=== PATIENT | female | born 1975 | race Two or more races ===

== ENCOUNTER 2024-10-09 11:45 | Emergency (ER) | payer MEDICAID, SELFPAY ==
[2024-10-09 12:02] VITALS: BP 142/82; PULSE 77; RESP 18; TEMP 36.7; O2SAT 96; BMI 30.3
--- NOTE | 2024-10-09 12:05 | PD.EDHA ---
ED Headache RME/HPI General Chief Complaint: Headache Stated Complaint: HEADACHE, DIZZY; 0800 IBUPROFEN Time Seen by Provider: 10/09/24 11:56 Source: patient Arrival date/time: 10/09/24 11:45 49-year-old female with no known medical history presents to the emergency room with a chief complaint of of a headache and dizziness x 6 days. Patient states the dizziness is very positional and occurs with sudden positional movements. Mode of arrival: ambulatory Limitations: no limitations Related Data Previous Rx's ?Medication ?Instructions ?Recorded hydrocodone 5 mg-acetaminophen 325 1 tab PO Q4H PRN pain #10 tabs 04/08/19 mg tablet ([place]) ibuprofen 600 mg tablet 600 mg PO Q6H PRN pain #14 tabs 04/08/19 meclizine 25 mg tablet 25 mg PO BID PRN dizziness #20 tabs 10/09/24 Allergies Allergy/AdvReac Type Severity Reaction Status Date / Time No Known Allergies AdvReac Unknown Uncoded 10/09/24 11:46 Review of Systems Review of Systems Systems Reviewed: All systems reviewed, normal except as documented Constitutional Constitutional: Denies fatigue and Reports headache(s) Eyes Eyes: Reports system reviewed and no additional complaints, except as documented, Denies blurry vision and Denies change in vision ENT Ears, Nose, Mouth, and Throat: Reports headache(s) and Denies throat swelling Cardiovascular Cardiovascular: Reports system reviewed and no additional complaints, except as documented, Denies chest pain, Denies dyspnea and Denies dyspnea on exertion Respiratory Respiratory: Reports system reviewed and no additional complaints, except as documented, Denies chest congestion, Denies cough, Denies dyspnea, Denies dyspnea on exertion and Denies wheezing Gastrointestinal Gastrointestinal: Reports system reviewed and no additional complaints, except as documented, Denies abdominal pain, Denies cramping, Denies nausea and Denies vomiting Genitourinary Genitourinary: Reports system reviewed and no additional complaints, except as documented Musculoskeletal Musculoskeletal: Reports system reviewed and no additional complaints, except as documented and Denies back pain Integumentary/Breasts Skin/Breast: Reports system reviewed and no additional complaints, except as documented and Denies wounds Neurologic Neurologic: Denies confusion and Reports headache(s) Psychiatric Psychiatric: Reports system reviewed and no additional complaints, except as documented, Denies anxiety, Denies confusion, Denies depression, Denies paranoia, Denies suicidal ideation and Denies tactile hallucinations Endocrine Endocrine: Reports system reviewed and no additional complaints, except as documented and Denies fatigue Hematologic/Lymphatic Hematologic/Lymphatic: Reports system reviewed and no additional complaints, except as documented and Denies lymphadenopathy Allergic/Immunologic Allergic/Immunologic: Reports system reviewed and no additional complaints, except as documented, Denies throat swelling, Denies urticaria and Denies wheezing ED Exam General Limitations: Present no limitations General appearance: Present alert and in no apparent distress Head Head exam: Present atraumatic Eye Eye exam: Present normal appearance, PERRL and EOMI ENT ENT exam: Present normal exam, normal oropharynx and mucous membranes moist Neck Neck exam: Present normal inspection, full ROM and trachea midline Chest Chest inspection: Present normal inspection and symmetric chest wall rise Respiratory Respiratory exam: Present normal lung sounds bilaterally Cardiovascular Cardiovascular exam: Present regular rate, normal rhythm and normal heart sounds Abdominal Exam Abdominal exam: Present soft and normal bowel sounds Extremities Exam Extremities exam: Present normal inspection and full ROM Back Exam Back exam: Present normal inspection and full ROM Neurological Exam Neurological exam: Present alert, oriented X3, CN II-XII intact, normal gait and reflexes normal Expanded Neurological Exam Patient oriented to: Present person, place and time Speech: Present fluid speech Cranial nerves: Normal: EOM function (II, III, IV, ), facial sensation (V) and facial palsy (VII) Cerebellar function: Present normal gait, Romberg normal and normal vibratory/position; Absent wide-based gait or ataxic gait Motor strength - LUE: 5/5 Motor strength - RUE: 5/5 Motor strength - LLE: 5/5 Motor strength - RLE: 5/5 Coma scale eye opening: spontaneous Coma scale motor response: obeys commands Coma scale verbal response: oriented Coma scale total: 15 Psychiatric Psychiatric exam: Present normal affect and normal mood Skin Skin exam: Present warm, dry, intact and normal color Course Quality Measures none Orders Category Date Time Status Ketorolac Inj [Toradol Inj] Med 10/09/24 12:05 Discontinued 30 mg IM X1 ONE Meclizine HCl [Antivert] Med 10/09/24 12:05 Discontinued 50 mg PO X1 ONE Vital Signs Vital signs: Vital Signs Temperature 98.1 F 10/09/24 12:02 Pulse Rate 77 10/09/24 12:02 Respiratory Rate 18 10/09/24 12:02 Blood Pressure 142/82 H 10/09/24 12:02 Pulse Oximetry (%) 96 10/09/24 12:02 Oxygen Delivery Method Room Air 10/09/24 12:02 O2 saturation 96% within normal limits Headache MDM Narrative MDM Narrative:: 49-year-old female with no known medical history presents to the emergency room with a chief complaint of of a headache and dizziness x 6 days. Patient states the dizziness is very positional and occurs with sudden positional movements. Patient is hemodynamically stable and in no apparent distress. Blood pressure is within normal limits. Physical examination shows a normal neurological exam. The patient is a GCS of 15 she is alert and oriented x 3. Pupils are PERRLA EOMs are intact Romberg is normal. Patient has a positive Hallpike maneuver. Patient did not have any vomiting but states she feels like the room is spinning. Patient states she has dizziness with sudden movements. Medication was given with significant improvement to her symptoms. Patient was discharged and educated to follow-up with primary care provider and return to the emergency room for any evidence of worsening signs or symptoms Patient data External records reviewed:: [facility] previous records Clinical information provided by:: patient Social determinants that could affect healthcare access:: none Patient has the following chronic illnesses:: No chronic illness How is presenting disease/condition affected by chronic disease/condition?: no chronic disease Evaluation data The following diagnostics were reviewed and interpreted by me:: lab results and radiology exam(s) Lab and/or radiology exams considered but not ordered:: Labs and radiology exams considered and ordered Interpretation Summary: N/A Medications / Prescriptions Medications or Prescriptions considered but not ordered:: Medication given Medication administrations:: Medication Administration History Discontinued Medications Ketorolac Tromethamine (Ketorolac Inj 60 Mg/2 Ml Vial) 30 mg IM X1 ONE Stop: 10/09/24 12:06 Last Admin: 10/09/24 12:15 Dose: 30 mg Documented By: ROLF Meclizine HCl (Meclizine Hcl 25 Mg Tablet) 50 mg PO X1 ONE Stop: 10/09/24 12:06 Last Admin: 10/09/24 12:15 Dose: 50 mg Documented By: ROLF Medication given Consultations Consultation(s) initiated? (list below): No Diagnosis Differential diagnosis headache: migraine, tension headache, headache and other (Vertigo) Most likely diagnosis given after review of the tests above:: Vertigo Admission Indicated Admission indicated?: not indicated Admission Request Was there a request for admission?: No Disposition Plan Disposition Plan: Discharge Discharge Attestation Discharge Attestation: The patient and all family members were given an opportunity to ask questions and understood the discharge instructions. Discharge instructions specifically effects, indications for sooner follow up or return to the emergency department, and the expected course of current diagnosis. Patient condition: Stable Discharge Plan Plan Patient Disposition: HOME (Self Care) Disposition Comment: Stable Prescriptions/Referrals Prescriptions/Med Rec: New meclizine 25 mg tablet 25 mg PO BID PRN (Reason: dizziness) Qty: 20 0RF No Action hydrocodone-acetaminophen [[place]] 5-325 mg tablet 1 tab PO Q4H MDD 6 PRN (Reason: pain) Qty: 10 0RF ibuprofen 600 mg tablet 600 mg PO Q6H PRN (Reason: pain) Qty: 14 0RF Referrals: Ochoa Apple MD [Primary Care Provider] - In 1 week Problem List Clinical Impression: Vertigo Patient/Caregiver Discharge Instructions Education Materials: Vertigo Medicine Tx Additional Instructions: Please follow-up with your primary care provider in the next 24 to 40 hours. Medication was sent to your pharmacy to help you with your dizziness. For any evidence of worsening signs or symptoms return the emergency room immediately Print Language: Malaysian Stand Alone Forms: [facility] Award Info., Patient Portal Info Letter LEATHA/DAVIDA Supervising Physician LEATHA/DAVIDA Supervising Physician: Dr. Lin
[2024-10-09] MEDS: MECLIZINE HCL 25 MG TABLET 50 MG PO (12:15)
[2024-10-09] MEDS: KETOROLAC INJ 60 MG/2 ML VIAL 30 MG IM (12:15)
--- NOTE | 2024-10-09 14:15 | PC.NURSE ---
no answer x 1 at 1415. checked outside and lobby.
--- NOTE | 2024-10-09 16:22 | PC.NURSE ---
no answer x 3 called patient at 1500 and 1600 checked outside and lobby
== END 2024-10-09 14:15 | disposition home or self-care (01) ==
PROVIDERS: Emergency Provider Emergency Medicine; PCP Family Medicine
DX: R42 Dizziness and giddiness (principal); R51.9 Headache, unspecified
CPT/HCPCS: 96372; 99283; J1885; A9270